=== PATIENT | female | born 1955 | race Caucasian/White ===

== ENCOUNTER → 2017-03-04 | Outpatient (CLI) | payer BC ==
[~2017-03-04] VITALS: Ht 170.2 cm; Wt 68.6 kg
[~2017-03-04] MED LIST: EST1.25T
[2017-03-04 12:50] VITALS: BP 118/77
[2017-03-04 13:15] VITALS: BP 112/78
--- NOTE | 2017-03-04 14:42 | Diagnostic Imaging Report ---
EXAMINATION: Magnetic resonance imaging of the right shoulder with intra-articular contrast. DATE: March 04, 2017. COMPARISON: Right shoulder arthrogram March 04, 2017. HISTORY: 62-year-old female, right shoulder pain after heavy lifting 5-6 months ago. TECHNIQUE: Magnetic Resonance Imaging sequences were performed of the shoulder following the intra-articular administration of contrast. [< >] FINDINGS: ROTATOR CUFF, LIGAMENTS, TENDONS, AND MUSCLES: The supraspinatus, infraspinatus, teres minor, and subscapularis tendons and muscles are intact. There is normal rotator cuff muscle bulk and signal. LONG HEAD OF BICEPS: The long head of biceps tendon is intact and normally positioned within the bicipital groove. GLENOHUMERAL JOINT: The humeral head is well positioned relative to the glenoid. There is a prominent cleft of contrast undermining the biceps labral attachment which does appear mildly irregular in morphology. This also does appear to extend just slightly posterior to the biceps labral attachment and such as seen on coronal T1 fat saturation sequence image 9, sagittal T1 fat saturation sequence image 13, and axial T1 fat saturation sequence image 9. This is most suggestive of a superior labral tear rather than a very prominent normal variant sub-labral sulcus. There is also a tear of the mid anterior labrum extending from at least the 3:00 position to involve the anterior inferior labrum and extends to the inferior labrum to approximately the 6:00 position. There is no paralabral cyst. Particularly given the location of the labral tears, this does question the integrity the anterior superior labrum. The articular cartilage is grossly intact. There is no intra-articular body or prominent synovitis. ACROMIOCLAVICULAR JOINT: The acromioclavicular joint is normally aligned. The coracoclavicular and coracoacromial ligaments are intact. There are minimal acromioclavicular degenerative changes without undersurface osteophyte. BONE: The bones all have normal configuration. There is no acute fracture, bone contusion, or evidence of osteonecrosis. BURSAE AND SOFT TISSUES: There is no contrast extension into the subacromial subdeltoid bursa. There is no viejas subacromial subdeltoid bursal fluid. The additional soft tissues are unremarkable in appearance. IMPRESSION: 1. Tear of the mid anterior labrum extending from at least the 3:00 position to involve the anterior inferior labrum and extending to the 6:00 position of the inferior labrum. There are also findings most compatible with a superior labral tear rather than a prominent normal variant sub-labral sulcus. This does question the integrity of the intervening anterosuperior labrum. No paralabral cyst. 2. Grossly intact articular cartilage. 3. Intact rotator cuff. 4. Very minimal acromioclavicular degenerative changes without undersurface osteophyte. 5. No acute fracture or bone contusion. Dictated by: Dictated on workstation # [id number]
--- NOTE | 2017-03-04 15:38 | Diagnostic Imaging Report ---
EXAMINATION: Fluoroscopic guided joint injection/arthrogram- right shoulder . INDICATION: Right shoulder pain, request for MR arthrogram of the shoulder is submitted. Fluoroscopy time: 2 minutes and 30 seconds fluoroscopy time was utilized CONSENT: Informed consent was obtained from the patient. The risks, benefits, potential complications and alternatives were reviewed and all questions answered to the patient's satisfaction. PROCEDURE: After sterile preparation and draping, 1% lidocaine was utilized for local anesthesia. A 22 spinal needle is introduced into the glenohumeral joint under fluoroscopic guidance. After confirmation of proper positioning with intra-articular injection of, 12 ml of 1:150 concentration of Gadavist in normal saline is injected the into the joint. The patient tolerated the procedure well with no immediate complications. FINDINGS: Arthrogram demonstrates Normal distribution of contrast in the joint with no filling of the subacromial subdeltoid bursa seen. IMPRESSION: Successful fluoroscopic guided injection of diluted gadolinium into the right shoulder. MR arthrogram to follow. Dictated by: Dictated on workstation # [id number]
--- NOTE | 2017-03-05 09:09 | Diagnostic Imaging Report ---
Bilateral screening mammogram The current study was also evaluated with a Computer Aided Detection (CAD) system. Indication: Screening. No current complaints stated on the questionnaire. COMPARISON: 12/06/14. FINDINGS: The breasts are composed of scattered fibroglandular densities, with slightly dense parenchyma in the upper outer aspect of each breast. There are scattered benign-appearing calcifications. Allowing for technique and positional differences, no suspicious change is seen. IMPRESSION: No significant change. ACR BI-RADS Category 2: Benign findings. Result letter will be mailed to the patient. Note: At least 10% of breast cancer is not imaged by mammography. Dictated by: Dictated on workstation # [id number]
== END ==
LOC: RAD 12:25
PROVIDERS: ATTEND Internal Medicine
DX: Z12.31 Encounter for screening mammogram for malignant neoplasm of breast (principal); S43.491A Other sprain of right shoulder joint, initial encounter; X50.0XXA Overexertion from strenuous movement or load, initial encounter; Y99.8 Other external cause status
CPT/HCPCS: 23350; 73040; 73222; 77067

== ENCOUNTER → 2018-03-21 | Outpatient (CLI) | payer BC ==
--- NOTE | 2018-03-21 09:25 | Diagnostic Imaging Report ---
Indication: Screening. The current study was also evaluated with a Computer Aided Detection (CAD) system. Comparison made with prior examination of 02/22/2017 back through 04/01/2011. 3-D tomosynthesis was also performed and reviewed. Findings: There are scattered fibroglandular densities bilaterally. There are a few benign type calcifications. There is no new dominant mass, spiculated lesion or suspicious calcification identified. Skin, nipples, and axilla are unremarkable. Impression: Category 2 benign. ACR BI-RADS Category 2: Benign findings. Result letter will be mailed to the patient. Note: At least 10% of breast cancer is not imaged by mammography. Dictated by: Dictated on workstation # [id number]
== END ==
LOC: RAD 07:25
PROVIDERS: ATTEND Internal Medicine
DX: Z12.31 Encounter for screening mammogram for malignant neoplasm of breast (principal)
CPT/HCPCS: 77067

== ENCOUNTER → 2019-04-03 | Outpatient (CLI) | payer BC ==
--- NOTE | 2019-04-03 10:53 | Diagnostic Imaging Report ---
Indication: Routine screening. Comparison is made with prior mammogram from 03/21/2018 and 03/04/2017. 2-D and 3-D bilateral screening mammography was performed with CAD. Scattered fibroglandular densities are identified bilaterally. The parenchymal pattern is stable. No mass or malignant appearing microcalcifications are seen. Axillae are unremarkable. Impression: BI-RADS category one No mammographic features suspicious for malignancy are identified. ACR BI-RADS Category 1: Negative. Result letter will be mailed to the patient. Note: At least 10% of breast cancer is not imaged by mammography. Dictated by: Dictated on workstation # [id number]
== END ==
LOC: RAD 08:00
PROVIDERS: ATTEND Nurse Practitioner Family
DX: Z12.31 Encounter for screening mammogram for malignant neoplasm of breast (principal)
CPT/HCPCS: 77067

== ENCOUNTER 2019-06-17 20:05 | Emergency (ER) | payer BC ==
[~2019-06-17] VITALS: Ht 170.2 cm; Wt 72.6 kg
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
[2019-06-17 21:19] VITALS: BP 144/110
== END 2019-06-17 21:19 | disposition home or self-care (01) ==
LOC: ER 20:05 → EDUNIT# 20:26 → ER 21:19
DX: S51.002A Unspecified open wound of left elbow, initial encounter (principal); S80.211A Abrasion, right knee, initial encounter; S80.212A Abrasion, left knee, initial encounter; S30.811A Abrasion of abdominal wall, initial encounter; R40.2142 Coma scale, eyes open, spontaneous, at arrival to emergency department; R40.2252 Coma scale, best verbal response, oriented, at arrival to emergency department; R40.2362 Coma scale, best motor response, obeys commands, at arrival to emergency department; V80 Animal-rider or occupant of animal-drawn vehicle injured in transport accident
CPT/HCPCS: 99284

== ENCOUNTER → 2019-06-20 | Outpatient (CLI) | payer BC | LOC: WOUNDCARE 14:04 | PROVIDERS: ATTEND Surgery | DX: S51.812A Laceration without foreign body of left forearm, initial encounter (principal); L98.492 Non-pressure chronic ulcer of skin of other sites with fat layer exposed | CPT/HCPCS: 99213 ==

== ENCOUNTER → 2019-06-27 | Outpatient (CLI) | payer BC | LOC: WOUNDCARE 15:44 | PROVIDERS: ATTEND Surgery | DX: S51.812A Laceration without foreign body of left forearm, initial encounter (principal); L98.492 Non-pressure chronic ulcer of skin of other sites with fat layer exposed; I96 Gangrene, not elsewhere classified | CPT/HCPCS: 11042 ==

== ENCOUNTER → 2020-11-11 | Outpatient (CLI) | payer BC ==
--- NOTE | 2020-11-11 10:40 | Diagnostic Imaging Report ---
INDICATION: Routine screening. COMPARISON: 04/03/2019 and 03/21/2018. TECHNIQUE: 2D and 3D bilateral screening mammography was performed with CAD. FINDINGS: Scattered fibroglandular densities are identified bilaterally. The overall parenchymal pattern appears stable. No mass is identified. No malignant appearing microcalcifications are seen. The axillae are unremarkable. IMPRESSION: Stable bilateral mammograms. There are no mammographic features suspicious for malignancy. ACR BI-RADS Category 1: Negative. Result letter will be mailed to the patient. Note: At least 10% of breast cancer is not imaged by mammography. Dictated by: Dictated on workstation # [id number]
== END ==
LOC: RAD 07:45
PROVIDERS: ATTEND Nurse Practitioner Family
DX: Z12.31 Encounter for screening mammogram for malignant neoplasm of breast (principal)
CPT/HCPCS: 77063; 77067

== ENCOUNTER → 2021-08-11 | Outpatient (CLI) | payer BC, OTHER ==
--- NOTE | 2021-08-11 12:33 | Diagnostic Imaging Report ---
PROCEDURE: US Gallbladder. TECHNIQUE: Multiple real-time grayscale images were obtained over the right upper quadrant in various projections. INDICATION: Right upper quadrant pain. The liver is normal in size at 14.1 cm. The portal vein is patent and shows normal direction of flow. No liver mass is identified. Gallbladder is without stones or sludge. No wall thickening or biliary ductal dilatation is seen. Pancreas unremarkable. Aorta is nonaneurysmal. IVC is patent. Right kidney is without calculi or hydronephrosis. There is no ascites. IMPRESSION: Unremarkable right upper quadrant ultrasound. Dictated by: Dictated on workstation # [id number]
== END ==
LOC: RAD 09:59
PROVIDERS: ATTEND Internal Medicine
DX: R10.11 Right upper quadrant pain (principal)
CPT/HCPCS: 76705

== ENCOUNTER → 2021-11-10 | Outpatient (CLI) | payer BC ==
[~2021-11-10] MED LIST changes: +CATHETER FLUSH 10 ML SYR IV PRN; +HOLD METFORMIN - RECEIVED CONTRAST 20 ML VIAL IV SCH; +IOHEXOL 350 MG/ML 100 ML (OMNIPAQUE 350) VIAL IV ONE; +NS 100 ML (IVPB) BAG IV ONE
[2021-11-10 07:08] LABS: BASOPHILS # (AUTO) 0.1 10^3/uL (0.0-0.1); BASOPHILS % (AUTO) 1 % (0-10); EOSINOPHILS # (AUTO) 0.1 10^3/uL (0.0-0.3); EOSINOPHILS % (AUTO) 2 % (0-10); HEMATOCRIT 38 % (35-52); LYMPHOCYTES # (AUTO) 1.5 10^3/uL (1.0-4.0); LYMPHOCYTES % (AUTO) 35 % (12-44); MEAN CORPUSCULAR HEMOGLOBIN 33 pg (25-34); MEAN CORPUSCULAR HGB CONC 34 g/dL (32-36); MEAN CORPUSCULAR VOLUME 96 fL (80-99); MEAN PLATELET VOLUME 9.3 fL (9.0-12.2); MONOCYTES # (AUTO) 0.4 10^3/uL (0.0-1.0); MONOCYTES % (AUTO) 9 % (0-12); NEUTROPHILS # (AUTO) 2.3 10^3/uL (1.8-7.8); NEUTROPHILS % (AUTO) 53 % (42-75); PLATELET COUNT 305 10^3/uL (130-400); WHITE BLOOD COUNT 4.4 10^3/uL (4.3-11.0)
[2021-11-10 07:27] LABS: ALBUMIN 4.2 GM/DL (3.2-4.5); BILIRUBIN,TOTAL 0.4 MG/DL (0.1-1.0); CALCIUM 9.5 MG/DL (8.5-10.1); CREATININE SERUM 0.82 MG/DL (0.60-1.30); MAGNESIUM 1.8 MG/DL (1.6-2.4); TOTAL PROTEIN 6.9 GM/DL (6.4-8.2)
[2021-11-10 07:37] LABS: ERYTHROCYTE SEDIMENTATION RATE 7 MM/HR (0-30)
--- NOTE | 2021-11-10 13:32 | Diagnostic Imaging Report ---
PROCEDURE: CT angiography of the chest with contrast. TECHNIQUE: Multiple contiguous axial images were obtained through the chest after uneventful bolus administration of intravenous contrast. 3D reconstructed CTA MIP acquisitions were also performed. Auto Exposure Controls were utilized during the CT exam to meet ALARA standards for radiation dose reduction. Date: November 10, 2021. Indication: 66-year-old female, retinal vascular occlusion. Comparison: CT abdomen pelvis May 15, 2016. Findings: There is no identified pulmonary nodule or lung mass. There are predominantly dependent linear and additional areas of groundglass attenuation most compatible with atelectasis. There is no additional focal airspace consolidation. There is no pneumothorax. There is no pleural effusion. The central airways are patent. There is a small amount of gas in the main pulmonary artery likely relating to recent venous access. There is no identified central or segmental pulmonary embolus. The main pulmonary artery diameter is within normal limits. The heart is not enlarged. There is no pericardial effusion. There is an area of low-attenuation in the left ventricle similar appearance to April 2016. This most likely reflects a normal structure. The thoracic aorta is normal in caliber. There is mild calcified plaque at the level of the right brachiocephalic artery. There is a beaded appearance of the mid to distal aspect of the right renal artery which is an interval change since April 2016. The imaged arterial vasculature is patent. There is a low-attenuation lesion in the liver near the ligamentum teres measuring 1.7 cm in size and a more superiorly located 1.2 cm predominantly low-attenuation lesion in the left lobe of liver. This more superiorly located lesion is not definitely seen on the prior CT abdomen pelvis exam. There is scoliosis. There are multilevel mild degenerative changes of the spine. There is no identified acute bony abnormality. Impression: 1. Beaded appearance of the mid to distal aspect of the right renal artery which can be seen with fibromuscular dysplasia. There is mild calcified plaque involving the right brachiocephalic artery and otherwise unremarkable appearance of the vasculature within the included [id number]. 2. Low-attenuation lesions in the liver as described above. Recommend MRI abdomen without and with intravenous contrast, liver mass protocol within and out of phase imaging to assess both lesions. 3. No acute cardiopulmonary abnormality. Dictated by: Dictated on workstation # [id number]
== END ==
LOC: RAD 06:40
PROVIDERS: ATTEND Internal Medicine Cardiovascular Disease
DX: H34.9 Unspecified retinal vascular occlusion (principal); I70.8 Atherosclerosis of other arteries; K76.9 Liver disease, unspecified
CPT/HCPCS: 36415; 71275; 80053; 80061; 83735; 84443; 85025; 85652

== ENCOUNTER → 2021-11-12 | Outpatient (CLI) | payer BC ==
[~2021-11-12] MED LIST changes: -CATHETER FLUSH 10 ML SYR IV PRN; -HOLD METFORMIN - RECEIVED CONTRAST 20 ML VIAL IV SCH; -IOHEXOL 350 MG/ML 100 ML (OMNIPAQUE 350) VIAL IV ONE; -NS 100 ML (IVPB) BAG IV ONE
== END ==
LOC: CARD 14:30
PROVIDERS: ATTEND Internal Medicine Cardiovascular Disease
DX: R00.2 Palpitations (principal)
CPT/HCPCS: 93225; 93226; 93306

== ENCOUNTER → 2021-11-17 | Outpatient (CLI) | payer BC ==
[~2021-11-17] MED LIST changes: +CATHETER FLUSH 10 ML SYR IV PRN; +HOLD METFORMIN - RECEIVED CONTRAST 20 ML VIAL IV SCH; +IOHEXOL 350 MG/ML 100 ML (OMNIPAQUE 350) VIAL IV ONE; +NS 100 ML (IVPB) BAG IV ONE
--- NOTE | 2021-11-17 08:20 | Diagnostic Imaging Report ---
PROCEDURE: CT angiography of the head and CT angiography of the neck with and without contrast. TECHNIQUE: Contiguous noncontrast images were obtained from the skull base through the vertex. After intravenous contrast administration, helical CT angiography of the neck was performed. Source data was reformatted into 3D MIP projections. Delayed post contrast acquisition was also obtained. Auto Exposure Controls were utilized during the CT exam to meet ALARA standards for radiation dose reduction. INDICATION: Vision loss. Retinal vascular occlusion. COMPARISON: None. FINDINGS: Noncontrast head CT demonstrates no CT evidence of a territorial infarction. Moderate generalized parenchymal volume loss. No intracranial hemorrhage, mass effect, hydrocephalus or extra-axial fluid collections. No abnormal intracranial enhancement on delayed postcontrast imaging. CTA demonstrates conventional aortic arch. The basilar, bilateral vertebral, common carotid, internal carotid, anterior cerebral, middle cerebral posterior and cerebral arteries widely patent without evidence of aneurysm dissection. Normal opacification of the dural venous sinuses. Paranasal sinuses and mastoids are clear. Moderate to advanced spondylotic changes in the cervical spine are greatest at C4-C7. No acute osseous findings. Visualized paravertebral soft tissues are unremarkable. Lung apices are clear. IMPRESSION: 1. No large vessel occlusion. No high-grade narrowing, aneurysm or dissection involving major arteries in the head and neck. 2. No acute intracranial CT findings. Dictated by: Dictated on workstation # [id number]
== END ==
LOC: RAD 07:45
PROVIDERS: ATTEND Internal Medicine Cardiovascular Disease
DX: H34.219 Partial retinal artery occlusion, unspecified eye (principal)
CPT/HCPCS: 70496; 70498

== ENCOUNTER → 2021-11-24 | Outpatient (CLI) | payer BC ==
[~2021-11-24] MED LIST changes: -CATHETER FLUSH 10 ML SYR IV PRN; +GADOBUTROL 15 MMOL/15 ML (GADAVIST) VIAL IV ONE; -HOLD METFORMIN - RECEIVED CONTRAST 20 ML VIAL IV SCH; -IOHEXOL 350 MG/ML 100 ML (OMNIPAQUE 350) VIAL IV ONE; -NS 100 ML (IVPB) BAG IV ONE
--- NOTE | 2021-11-24 14:09 | Diagnostic Imaging Report ---
EXAMINATION: MRI of the abdomen with and without contrast. TECHNIQUE: Multiplanar, multisequence MR images of the abdomen were obtained with and without intravenous contrast. HISTORY: Liver lesion followup. COMPARISON: CTA chest 11/10/2021 FINDINGS: Liver: There is diffuse loss of signal on in phase images which can be seen with iron deposition. There is a 1.4 cm lesion within hepatic segment 4B which demonstrates mild increased T2 signal with loss of signal on out of phase images. It demonstrates enhancement on postcontrast, remaining below attenuation of the normal liver. There is additional 0.8 cm lesion within hepatic segment 4B which demonstrates T1 hypointensity and mild T2 hyperintensity with mild peripheral nodular enhancement which does not fill in on delayed images. Gallbladder and Bile Ducts: There is no intrahepatic or extrahepatic bile duct dilation. There are no filling defects in the gallbladder or common bile duct. Pancreas: The pancreas is normal in volume, signal intensity and enhancement. There is no dilation of the main pancreatic duct. Kidneys: There is no hydronephrosis. Adrenal glands: There is no adrenal gland nodule or thickening. Spleen: The spleen is normal in size without focal lesion. Lymph Nodes: There is no suspicious lymphadenopathy. Other: There is no ascites. IMPRESSION: 1. A 1.4 cm lesion within hepatic segment IVb with imaging characteristics suggesting an adenoma or focal fatty infiltration. 2. An indeterminate 0.8 cm hepatic segment IVb lesion. Recommend MRI followup in 6 months. 3. Background loss of signal within the liver on in phase imaging which can be seen with iron deposition disease. Dictated by: Dictated on workstation # [id number]
== END ==
LOC: RAD 12:30
PROVIDERS: ATTEND Internal Medicine Cardiovascular Disease
DX: K76.9 Liver disease, unspecified (principal)
CPT/HCPCS: 74183

== ENCOUNTER → 2021-12-23 | Outpatient (CLI) | payer BC ==
[~2021-12-23] MED LIST changes: -GADOBUTROL 15 MMOL/15 ML (GADAVIST) VIAL IV ONE
--- NOTE | 2021-12-23 12:40 | Diagnostic Imaging Report ---
INDICATION: Routine screening. COMPARISON: 11/11/2020 and 04/03/2019. TECHNIQUE: 2D and 3D bilateral screening mammography was performed with CAD. FINDINGS: Scattered fibroglandular densities are identified bilaterally. An ovoid circumscribed nodule is noted in the far posterior left breast on the MLO view at the nipple line. This was not definitely present on the prior study but has the appearance of an intraparenchymal lymph node. Smaller intraparenchymal lymph nodes in the left breast appear stable. There are no malignant-appearing microcalcifications. The right breast is unremarkable. The axillae are unremarkable. IMPRESSION: Development of a circumscribed ovoid nodule in the far posterior left breast, only seen on the MLO view, likely an intraparenchymal lymph node. Even so, additional views and ultrasound would be recommended for further evaluation. ACR BI-RADS Category 0: Incomplete. (Needs additional imaging evaluation). Result letter will be mailed to the patient. Note: At least 10% of breast cancer is not imaged by mammography. Dictated by: Dictated on workstation # [id number]
== END ==
LOC: RAD 08:00
PROVIDERS: ATTEND Nurse Practitioner Family
DX: Z12.31 Encounter for screening mammogram for malignant neoplasm of breast (principal)
CPT/HCPCS: 77063; 77067

== ENCOUNTER → 2021-12-31 | Outpatient (CLI) | payer BC ==
--- NOTE | 2021-12-31 13:06 | Diagnostic Imaging Report ---
INDICATION: Left breast density. Patient presents for additional views. COMPARISON: Screening study from 12/23/2021. TECHNIQUE: Unilateral left 2D and 3D diagnostic mammography was performed with CAD. This included spot compression MLO views as well as conventional mediolateral view and exaggerated CC view. FINDINGS: Additional views fail to demonstrate the density noted on the recent screening study. There is a cluster of circumscribed nodules which has been present on prior studies in the outer left breast and are benign. No concerning mass or malignant-appearing microcalcifications are seen. IMPRESSION: No mammographic features suspicious for malignancy are identified. ACR BI-RADS Category 2: Benign findings. Result letter will be mailed to the patient. Note: At least 10% of breast cancer is not imaged by mammography. Dictated by: Dictated on workstation # [id number]
== END ==
LOC: RAD 12:45
PROVIDERS: ATTEND Nurse Practitioner Family
DX: R92.2 Inconclusive mammogram (principal)
CPT/HCPCS: 77065; G0279

== ENCOUNTER → 2022-06-30 | Outpatient (CLI) | payer BC ==
[~2022-06-30] MED LIST changes: +GADOTERATE 0.5 MMOL/ML (CLARISCAN) 15 ML VIAL IV ONE
--- NOTE | 2022-06-30 12:01 | Diagnostic Imaging Report ---
PROCEDURE: MR imaging abdomen with and without contrast. TECHNIQUE: Multiplanar, multisequence MR imaging of the abdomen was performed with and without contrast. INDICATION: Follow-up liver lesion. COMPARISON: 11/24/2021. FINDINGS: At the inferior aspect of segment IVb, there remains a 1.4 cm area of focal fatty infiltration. This can be confirmed as focal fatty infiltration as there are normal vessels seen coursing through the area that has signal dropout on opposed-phase imaging. Located slightly more superior within segment IVb, there is an unchanged rounded 0.8 cm lesion. This has hypointensity on pre contrast imaging and no appreciable enhancement on any of the phases of imaging. On T2-weighted imaging, there is no associated hyperintensity within this area. The spleen, pancreas and adrenals are normal. No renal mass or obstructive uropathy. No abdominal lymphadenopathy. There is no ascites present. Normal-caliber abdominal aorta. Visualized lung bases are unremarkable. IMPRESSION: 1. The larger of the abnormalities in segment IVb is focal fatty infiltration along the falciform ligament. This is benign in nature and requires no dedicated follow-up imaging. 2. The smaller 0.8 cm lesion in segment IVb is unchanged and has no enhancement or other concerning features. This remains indeterminate in nature and follow-up MRI abdomen in 12 months could be performed to ensure long-term stability. Dictated by: Dictated on workstation # [id number]
== END ==
LOC: RAD 08:00
PROVIDERS: ATTEND Nurse Practitioner Family
DX: K76.9 Liver disease, unspecified (principal)
CPT/HCPCS: 74183

== ENCOUNTER 2023-06-02 05:33 | Outpatient (CLI) | payer BC ==
[~2023-06-02] VITALS: Ht 170.2 cm; Wt 75.0 kg
[~2023-06-02 05:33] MED LIST changes: -GADOTERATE 0.5 MMOL/ML (CLARISCAN) 15 ML VIAL IV ONE
[2023-06-02] MEDS ORDERED: MTP25TSR PO (14:00)
== END 2023-06-02 16:20 | disposition home or self-care (01) ==
LOC: PREOP 05:33
PROVIDERS: ATTEND Specialist
DX: Z01.818 Encounter for other preprocedural examination (principal)

== ENCOUNTER 2023-06-04 09:04 | Day surgery (SDC) | payer BC, MEDICARE ==
[~2023-06-04] VITALS: Ht 170.2 cm; Wt 75.0 kg
[~2023-06-04 09:04] MED LIST changes: +MTP25TSR PO
[2023-06-04] MEDS: TETRACAINE 0.5% OPHTH SOLN 4 ML BTL (SINGLE DOSE ONLY) OU PRN ×3 (09:22→09:32)
[2023-06-04 09:24] VITALS: BP 136/99
--- NOTE | 2023-06-04 09:26 | Ophthalmologist Pre-Op Note ---
Pre-Operative Progress Note H&P Reviewed The H&P was reviewed, patient examined and no changes noted. Date H&P Reviewed: Jun 04, 2023 Time H&P Reviewed: 09:26 Pre-Op Dx Secondary Cataract, Bilateral Eyes SAMANTHA RIVERA MD Jun 04, 2023 09:26
[2023-06-04] MEDS: PHENYLEPHRINE 10% OPHTH SOLN 5 ML BTL OU PRN ×2 (09:27→09:32)
[2023-06-04] MEDS: TROPICAMIDE 1% OPH SOLN (MYDRIACYL) 15 ML BTL OU PRN ×2 (09:27→09:32)
--- NOTE | 2023-06-04 10:19 | Ophthalmology Operative Report ---
YAG Capsulotomy PREOPERATIVE DIAGNOSIS: Secondary Cataract Bilateral POSTOPERATIVE DIAGNOSIS: Secondary Cataract Bilateral PROCEDURE: YAG Capsulotomy, Bilateral SURGEON: Mike Rivera ANESTHESIA: Topical anesthesia COMPLICATIONS: None ESTIMATED BLOOD LOSS: Minimal DESCRIPTION OF PROCEDURE: After proper informed consent was obtained, the patient's, a 68 female , received one drop of Tropicamide and one drop of Tetracaine in each eye. The patient was then placed at the YAG laser and using a power of [4.1 ] millijoules and bursts [19 ] right eye and [ 17] left eye were used to fashion a central capsulotomy. The patient tolerated the procedure well without complications. MIKE RIVERA MD Jun 04, 2023 10:19
== END 2023-06-04 10:01 | disposition home or self-care (01) ==
LOC: SDC 09:04
PROVIDERS: ATTEND Specialist
DX: H26.40 Unspecified secondary cataract (principal); Z87.891 Personal history of nicotine dependence; Z85.820 Personal history of malignant melanoma of skin

== ENCOUNTER → 2023-08-24 | Outpatient (CLI) | payer MEDICARE, OTHER ==
--- NOTE | 2023-08-24 16:04 | Diagnostic Imaging Report ---
INDICATION: Postmenopausal state COMPARISON: 04/15/2001 FINDINGS: AP Spine L2-L4: [BMD (g/cm2): 1.057] [T-Score: -1.2] [Z-Score: 0.1] [BMD Previous: 1.412] [BMD % Change: -25.1*] LT Hip Neck: [BMD (g/cm2): 0.821] [T-Score: -1.6] [Z-Score: -0.2] LT Hip Total: [BMD (g/cm2):0.884] [T-Score:-1.0] [Z-Score: 0.1] [BMD Previous: 1.091] [BMD % Change: -19.0*] RT Hip Neck: [BMD (g/cm2):0.854] [T-Score:-1.3] [Z-Score:0.0] RT Hip Total: [BMD (g/cm2):0.850] [T-score:-1.2] [Z-Score:-0.2] [BMD Previous:1.041] [BMD % Change:-18.3*] *Indicates significant change from prior examination based on 95% confidence level. World Health Organization criteria for BMD interpretation classify patients as Normal (T-score at or above -1.0), Osteopenic (T-score between -1.0 and -2.5) or Osteoporotic (T-score at or below -2.5). LIMITATIONS AND MODIFICATION: None. FRACTURE RISK (FRAX SCORE): The ten year probability of (%): Major Osteoporotic Fracture: [9.7] Hip Fracture: [1.3] IMPRESSION: 1. Osteopenia (Low bone mass). 2. Bone mineral density has decreased by a statistically significant amount since the prior examination in 2000, as detailed above. 3. See below National Osteoporosis Foundation guidelines on when to potentially initiate pharmacologic therapy. Based on the National Osteoporosis Foundation Guidelines, pharmacologic treatment should be initiated in any of the following, unless clinical conditions suggest otherwise: * Any patient with prior fragility fracture of the hip or vertebrae. A spine fracture indicates 5X risk for subsequent spine fracture and 2X risk for subsequent hip fracture. * Osteoporosis (T-score <-2.5). * Postmenopausal women and men age 50 and older with low bone mass/osteopenia (T-score between -1.0 and -2.5) by DXA and 10-year major osteoporotic fracture greater than 20% or a 10-year probability of hip fracture greater than 3%. These fracture risks are supplied above in the FRAX score, if applicable. * Clinician judgement and/or patient preferences may indicate treatment for people with 10-year fracture probabilities above or below these levels. Dictated by: Dictated on workstation # [id number]
--- NOTE | 2023-08-24 17:16 | Diagnostic Imaging Report ---
Indication: Routine screening. Comparison is made with prior mammograms from 12/23/2021 and 11/11/2020. 2-D and 3-D bilateral screening mammography was performed with CAD. Scattered fibroglandular densities are identified bilaterally. The parenchymal pattern is stable. No mass or malignant-appearing microcalcifications are identified. Axillae are unremarkable. IMPRESSION: BI-RADS Category 1 No mammographic features suspicious for malignancy are identified. ACR BI-RADS Category 1: Negative. Result letter will be mailed to the patient. Note: At least 10% of breast cancer is not imaged by mammography. Dictated by: Dictated on workstation # [id number]
== END ==
LOC: RAD 10:45
PROVIDERS: ATTEND Family Medicine
DX: Z12.31 Encounter for screening mammogram for malignant neoplasm of breast (principal); M85.80 Other specified disorders of bone density and structure, unspecified site; Z78.0 Asymptomatic menopausal state
CPT/HCPCS: 77063; 77067; 77080